=== PATIENT | male | born 1990 | race Caucasian/White ===

== ENCOUNTER 2022-09-03 14:37 | Emergency (ER) | payer SELFPAY ==
--- NOTE | 2022-09-03 14:49 | ECG_ITS ---
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 Measurements Intervals [place] Rate: 86 P: 45 MS: 151 QRS: 52 QRSD: 98 T: 40 QT: 348 QTc: 416 Interpretive Statements SINUS RHYTHM No previous ECG available for comparison Electronically Signed On 09-03-2022 18:39:11 CDT by Duke Del Angel M.D. [id number]
[2022-09-03 14:50] VITALS: BP 157/101; PULSE 100; RESP 18; TEMP 36.8; O2SAT 97; BMI 38.9
--- NOTE | 2022-09-03 14:57 | XR_ITS ---
WS: [id number] EXAMINATION: XR chest 1V portable [id number] REASON FOR EXAM: chest pain COMPARISON: None available. ORDER DATE: 09/03/2022 2:57 PM TECHNIQUE: A single, portable frontal chest x-ray was obtained. X-RAY FINDINGS: The lungs are clear of infiltrate.. The round opacity 1 cm diameter in the right costophrenic angle w ithout calcification is noted. Focal eventration right diaphragm. Pleural spaces are clear. No pleura l effusions or pneumothorax. Cardiomediastinal silhouette is normal. No evidence for pulmonary edema. Soft tissue and osseous structures are unremarkable. No tubes or lines are present. XR/XR chest 1V portable [id number] IMPRESSION: Focal nodular density right costophrenic angle most likely represents a nipple shadow but this could be correlated with nipple markers for confirmation. No ac picayune pulmonary change
[2022-09-03 15:16] VITALS: BP 144/83; PULSE 80; RESP 21; O2SAT 98
--- NOTE | 2022-09-03 15:16 | W.ED.CHESTPA ---
HPI - Chest Pain General: Chief Complaint: Chest Pain Stated Complaint: Chest Pain, high hr Time Seen by Provider: 09/03/22 14:43 Source: patient Mode of arrival: ambulatory History of Present Illness: 32-year-old male presents to the emergency room with complaint of chest discomfort that he has had for the last 2 weeks has noticed anything exacerbates or relieves it. He has a history of mildly elevated blood pressure no known history of coronary disease denies any nausea or vomiting recent trauma. MD complaint: chest pain Onset (ago): week(s) (2) Timing of current episode: episodic Prior episodes: Yes Onset: during rest Pain radiation: none Severity: moderate Relieving factors: nothing Exacerbating factors: nothing Associated symptoms: Deny abdominal pain, diaphoresis, dyspnea, fever(s), leg edema, nausea, palpitations, sense of impending doom, syncope or vomiting Treatment prior to arrival: none Review of Systems Const: Denies: fever(s), chills or diaphoresis Card: Reports: chest pain; Denies: palpitations or syncope Resp: Denies: dyspnea, productive cough or non-productive cough GI: Denies: abdominal pain, nausea or vomiting : Denies: flank pain, dysuria, urinary frequency or urinary urgency Skin/Breast: Denies: rash or pruritus Physical Exam Const: COMMON NORMALS: no acute distress GENERAL APPEARANCE: cooperative and comfortable ORIENTATION/CONSCIOUSNESS: Yes awake, Yes oriented to person, Yes oriented to place and Yes oriented to time HENMT: COMMON NORMALS: normocephalic, atraumatic and hearing grossly normal bilaterally HEAD & SCALP: normocephalic and atraumatic Resp: COMMON NORMALS: normal respiratory effort, No retractions, No use of accessory muscles and clear to auscultation bilaterally AUSCULTATION: clear to auscultation bilaterally Cardio: COMMON NORMALS: regular rate, regular rhythm and No murmurs present (Cardio) RATE: regular rate RHYTHM: regular rhythm GI: COMMON NORMALS: Soft to palpation and No hepatosplenomegaly present AUSCULTATION: Yes normoactive bowel sounds PALPATION: Yes Soft to palpation, No Tenderness to palpation present (GI), No Guarding due to palpation present (GI) and Yes No hepatosplenomegaly present Extremity: COMMON NORMALS: normal to inspection, capillary refill normal and no clubbing, cyanosis or edema Neuro: SENSORIUM/ORIENTATION: Yes oriented to person, Yes oriented to place and Yes oriented to time Skin: COMMON NORMALS: no rashes or lesions noted GENERAL SKIN EXAM: no rashes or lesions noted Course Vital Signs: Vital signs: Vital Signs Temperature 98.2 F 09/03/22 14:50 Pulse Rate 75 09/03/22 16:25 Respiratory Rate 20 H 09/03/22 16:25 Blood Pressure 136/76 09/03/22 16:25 Pulse Oximetry 94 09/03/22 16:25 Oxygen Delivery Me thod Room Air 09/03/22 15:16 MDM - Chest Pain Medical Decision Making EKG and troponin normal patient has had symptoms for 2 weeks. His white count is elevated but he has been outside in the heat for the last 2 days almost continuous I think it may be more demargination he has no signs of overt infection at this time. We will discharge patient home have him follow-up with his primary care doctor started him on Pepcid recheck if he has any worsening of symptoms discussed symptoms of complete resolved at this time. Suspect this more being may be more chest pain from GI source if he has recurrence is asked to return Medical Records I reviewed the patient's medical records. Lab Data I reviewed the patient's lab results. 09/03/22 15:48 09/03/22 15:48 Radiology Impressions Chest X-Ray 09/03/22 14:57 IMPRESSION: Focal nodular density right costophrenic angle most likely represents a nipple shadow but this could be correlated with nipple markers for confirmation. No acute pulmonary change Laboratory Results WBC 17.4 10^3/uL (4.0-10.0) H 09/03/22 15:48 RBC 4.95 10^6/uL (4.1-5.3) 09/03/22 15:48 Hgb 15.5 g/dL (11.7-16.6) 09/03/22 15:48 Hct 44.1 % (42.0-52.0) 09/03/22 15:48 MCV 89.1 fl (80-94) 09/03/22 15:48 MCH 31.3 pg (28.0-34.0) 09/03/22 15:48 MCHC 35.1 g/dL (30.0-36.0) 09/03/22 15:48 RDW 12.2 % (12.1-15.1) 09/03/22 15:48 Plt Count 415 10^3/cmm (130-400) H 09/03/22 15:48 MPV 9.3 fL (7.4-10.4) 09/03/22 15:48 Neut % (Auto) 72.4 % 09/03/22 15:48 Lymph % (Auto) 18.5 % 09/03/22 15:48 [place] % (Auto) 7.5 % 09/03/22 15:48 Eos % (Auto) 0.7 % 09/03/22 15:48 Baso % (Auto) 0.6 % 09/03/22 15:48 Neut # (Auto) 12.59 10^3/uL (1.8-7.7) H 09/03/22 15:48 Lymph # (Auto) 3.2 10^3/uL (0.8-4.8) 09/03/22 15:48 [place] # (Auto) 1.3 10^3/uL (0.2-0.9) H 09/03/22 15:48 Eos # (Auto) 0.1 10^3/uL (0.0-0.8) 09/03/22 15:48 Baso # (Auto) 0.1 10^3/uL (0.0-0.1) 09/03/22 15:48 Nucleated RBC % (auto) 0 % 09/03/22 15:48 Nucleated RBCs # 0.0 /100WBC 09/03/22 15:48 Sodium 141 mmol/L (136-145) 09/03/22 15:48 Potassium 3.9 mmol/L (3.5-5.1) 09/03/22 15:48 Chloride 99 mmol/L (98-107) 09/03/22 15:48 Carbon Dioxide 24 mmol/L (22-29) 09/03/22 15:48 Anion Gap 21.9 (5-19) H 09/03/22 15:48 BUN 7 mg/dL (6-20) 09/03/22 15:48 Creatinine 0.7 mg/dL (0.7-1.2) 09/03/22 15:48 GFR Calculation 131.5 mL/min (90-130) H 09/03/22 15:48 Glucose 113 mg/dL (65-115) 09/03/22 15:48 Calculated Osmolality 291 mOsm/kg (285-295) 09/03/22 15:48 Calcium 10.4 mg/dL (8.5-10.5) 09/03/22 15:48 Total Bilirubin 0.8 mg/dL (0.15-1.2) 09/03/22 15:48 AST 22 U/L (0-40) 09/03/22 15:48 ALT 23 U/L (0-41) 09/03/22 15:48 Alkaline Phosphatase 81 U/L (40-130) 09/03/22 15:48 Troponin T Baseline 12 ng/L (0-15) 09/03/22 15:48 Total Protein 8.1 g/dL (6.6-8.7) 09/03/22 15:48 Albumin 5.2 g/dL (3.5-5.2) 09/03/22 15:48 Globulin 2.9 g/dL (1.3-4.6) 09/03/22 15:48 Discharge Plan Discharge Patient Disposition: Home Clinical Impression: Atypical chest pain Condition: Stable Prescriptions: New Pepcid 20 mg tablet 20 mg PO BID Qty: 60 0RF Discharge Orders: Discharge ED (Routine); Ordered 09/03/22 Ordered By: Luis Bhandari Discharge Diet: Usual diet Discharge Activity: Increase activity as tolerated Patient Instructions: Opioid Safety, Pain Management Coding Level of Care Code ED [employer] for Brett Porter
[2022-09-03 16:09] LABS: Basophils # 0.1 10^3/uL (0.0-0.1); Basophils % 0.6 %; Eosinophils # 0.1 10^3/uL (0.0-0.8); Eosinophils % 0.7 %; Hematocrit 44.1 % (42.0-52.0); Hemoglobin 15.5 g/dL (11.7-16.6); Lymphocytes # 3.2 10^3/uL (0.8-4.8); Lymphocytes % 18.5 %; Mean Corpuscular HGB Conc 35.1 g/dL (30.0-36.0); Mean Corpuscular Hemoglobin 31.3 pg (28.0-34.0); Mean Corpuscular Volume 89.1 fl (80-94); Mean Platelet Volume 9.3 fL (7.4-10.4); Monocytes # 1.3 10^3/uL (0.2-0.9); Monocytes % 7.5 %; Neutrophils # 12.59 10^3/uL (1.8-7.7); Neutrophils % 72.4 %; Nucleated Red Blood Cells % 0 %; Platelet Count 415 10^3/cmm (130-400); Red Blood Count 4.95 10^6/uL (4.1-5.3); Red Cell Distribution Width 12.2 % (12.1-15.1); White Blood Count 17.4 10^3/uL (4.0-10.0)
[2022-09-03 16:20] LABS: Alanine Aminotransferase 23 U/L (0-41); Albumin Level 5.2 g/dL (3.5-5.2); Alkaline Phosphatase 81 U/L (40-130); Anion Gap 21.9 (5-19); Aspartate Amino Transferase 22 U/L (0-40); Blood Urea Nitrogen 7 mg/dL (6-20); Calcium 10.4 mg/dL (8.5-10.5); Carbon Dioxide 24 mmol/L (22-29); Chloride 99 mmol/L (98-107); Globulin 2.9 g/dL (1.3-4.6); Glomerular Filtration Rate 131.5 mL/min (90-130); Glucose 113 mg/dL (65-115); Osmolality Calculated 291 mOsm/kg (285-295); Potassium 3.9 mmol/L (3.5-5.1); Sodium 141 mmol/L (136-145); Total Bilirubin 0.8 mg/dL (0.15-1.2); Total Protein 8.1 g/dL (6.6-8.7)
[2022-09-03 16:24] LABS: Troponin(5th) Baseline 12 ng/L (0-15)
[2022-09-03 16:25] VITALS: BP 136/76; PULSE 75; RESP 20; O2SAT 94
--- NOTE | 2022-09-03 16:58 | ECG_ITS ---
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 Measurements Intervals [place] Rate: 78 P: 19 [place]: 149 QRS: 37 QRSD: 94 T: 29 QT: 376 QTc: 429 Interpretive Statements SINUS RHYTHM Compared to ECG 09/03/2022 14:49:53 No significant changes Electronically Signed On 09-03-2022 18:44:49 CDT by Duke Del Angel M.D. [email or web address] [email or web address] state hospitalReal Imaging Holdingsblanchard valley [id number]
[2022-09-03 17:30] VITALS: BP 133/82; PULSE 76; RESP 20; O2SAT 96
== END 2022-09-03 17:31 | disposition home or self-care (01) ==
PROVIDERS: Physician Assistant; Emergency Provider Family Medicine
DX: R07.89 Other chest pain (principal)
CPT/HCPCS: 71045; 80053; 84484; 85025; 93005; 99285